=== PATIENT | male | born 1955 | race Caucasian/White ===

== ENCOUNTER → 2018-01-03 09:10 | Outpatient (CLI) | payer OTHER, SELFPAY ==
[2018-01-03 09:43] LABS: AST(SGOT) 27 U/L (15-37); Alanine Aminotransfer ALT/SGPT 45 U/L (16-61); Albumin, Serum 3.9 g/dL (3.2-5.0); Alkaline Phosphatase 53 U/L (45-117); Bilirubin, Direct 0.17 mg/dL (0.00-0.30); Cholesterol 100 mg/dL (200); Globulin 3.1 g/dL (2.2-4.2); High Density Lipoprotein 33 mg/dL; Triglycerides 81 mg/dL; Very Low Density Lipoprotein 16 mg/dL (5-40)
== END ==
PROVIDERS: PCP Family Medicine; Visit Provider Internal Medicine Cardiovascular Disease
DX: E78.5 Hyperlipidemia, unspecified (principal); Z79.899 Other long term (current) drug therapy
CPT/HCPCS: 36415; 80061; 80076

== ENCOUNTER → 2018-07-30 06:20 | Outpatient (CLI) | payer OTHER, SELFPAY ==
[2018-07-30 07:25] LABS: AST(SGOT) 23 U/L (15-37); Alanine Aminotransfer ALT/SGPT 38 U/L (16-61); Albumin, Serum 3.9 g/dL (3.2-5.0); Alkaline Phosphatase 51 U/L (45-117); Bilirubin, Direct 0.24 mg/dL (0.00-0.30); Cholesterol 96 mg/dL (200); Globulin 3.4 g/dL (2.2-4.2); High Density Lipoprotein 37 mg/dL; Protein, Total 7.3 g/dL (6.4-8.2); Triglycerides 86 mg/dL; Very Low Density Lipoprotein 17 mg/dL (5-40)
== END ==
PROVIDERS: Family Provider Family Medicine; PCP Family Medicine; Referring Provider Physician Assistant Medical; Visit Provider Physician Assistant Medical
DX: I25.10 Atherosclerotic heart disease of native coronary artery without angina pectoris (principal); E78.5 Hyperlipidemia, unspecified
CPT/HCPCS: 36415; 80061; 80076

== ENCOUNTER → 2019-04-03 06:43 | Outpatient (CLI) | payer OTHER, SELFPAY ==
[2019-03-27 09:47] VITALS: BMI 26.7
[2019-04-03 08:14] LABS: AST(SGOT) 26 U/L (15-37); Alanine Aminotransfer ALT/SGPT 38 U/L (16-61); Albumin, Serum 3.7 g/dL (3.2-5.0); Alkaline Phosphatase 53 U/L (45-117); Bilirubin, Direct 0.13 mg/dL (0.00-0.30); Cholesterol 113 mg/dL (200); Globulin 3.4 g/dL (2.2-4.2); High Density Lipoprotein 41 mg/dL; Protein, Total 7.1 g/dL (6.4-8.2); Triglycerides 78 mg/dL; Very Low Density Lipoprotein 16 mg/dL (5-40)
== END ==
PROVIDERS: Family Provider Family Medicine; PCP Family Medicine; Referring Provider Internal Medicine Cardiovascular Disease; Visit Provider Internal Medicine Cardiovascular Disease
DX: E78.00 Pure hypercholesterolemia, unspecified (principal); E78.5 Hyperlipidemia, unspecified
CPT/HCPCS: 36415; 80061; 80076

== ENCOUNTER → 2019-04-11 12:53 | Outpatient (CLI) | payer OTHER, SELFPAY ==
[2019-03-27 09:47] VITALS: BMI 26.7
--- NOTE | 2019-04-11 12:56 | ECHOD_ITS ---
Reason For Study: CAD/ASHD Procedure This was a 2D Doppler, Color Flow transthoracic echocardiogram. The study was technically difficult. Diminished parasternal windows. Exam performed in department. Left Ventricle Normal LV size. Left ventricular systolic function is normal. The estimated ejection fraction is 60 %. Stage 1 diastolic dysfunction. No regional wall motion abnormalities noted. Right Ventricle Normal RV size. Normal systolic function. Atria Normal left atrium. Normal right atrium. Mitral Valve Mitral valve not well visualized. Tricuspid Valve The tricuspid valve is not well visualized. Aortic Valve Trisinus/trileaflet aortic valve. Pulmonic Valve The pulmonic valve is not well visualized. Great Vessels Normal aortic root. Pericardium/Pleural No pericardial effusion. MMode/2D Measurements & Calculations LVIDd: 4.0 cm IVSd: 1.2 cm Ao root diam: 3.5 cm LVIDs: 2.9 cm LVPWd: 0.99 cm RVDd: 3.5 cm FS: 29.0 % LAV(MOD-bp): 45.6 ml LA A4 area: 15.9 cm2 LA dimension(2D): 3.0 cm LAV(MOD-bp) Indexed: 23.6 ml/m2 LAV(MOD-sp2): 49.1 ml LAV(MOD-sp4): 41.5 ml RA A4 area: 18.3 cm2 Time Measurements MV dec time: 0.30 sec Doppler Measurements & Calculations MV E max brandt: 62.0 cm/sec Lat Peak E' Brandt: 10.1 cm/sec Med Peak E' Brandt: 7.7 cm/sec MV A max brandt: 73.2 cm/sec E/E' lat: 6.1 E/E' med: 8.0 MV E/A: 0.85 Ao V2 max: 132.0 cm/sec LV V1 max: 94.5 cm/sec PA V2 max: 78.8 cm/sec Ao max P.0 mmHg LV V1 max P.6 mmHg TR max brandt: 240.1 cm/sec TR max P.1 mmHg Interpretation Summary Normal LV size. Left ventricular systolic function is normal. The estimated ejection fraction is 60 %. Stage 1 diastolic dysfunction. The study was technically difficult. Compared to prior study, there is no significant change. Ordering Physician: Shad Alvarez Referring Physician: Vickey Mendiola Performed By: Teresa Gifford RDCS, RVT
== END ==
PROVIDERS: Family Provider Family Medicine; PCP Family Medicine; Referring Provider Internal Medicine Cardiovascular Disease; Visit Provider Internal Medicine Cardiovascular Disease
DX: Z95.5 Presence of coronary angioplasty implant and graft (principal)
CPT/HCPCS: 93306

== ENCOUNTER 2019-07-07 18:22 | Emergency (ER) | payer OTHER, SELFPAY ==
[2019-03-27 09:47] VITALS: BMI 26.7
[2019-07-07 18:22] VITALS: BP 149/93; PULSE 78; RESP 17; TEMP 36.2; O2SAT 95; BMI 30.2
--- NOTE | 2019-07-07 18:34 | EKG12_ITS ---
Test Reason : DIZZY Blood Pressure : / mmHG Vent. Rate : 074 BPM Atrial Rate : 074 BPM P-R Int : 130 ms QRS Dur : 080 ms QT Int : 388 ms P-R-T Axes : 066 006 071 degrees QTc Int : 430 ms Sinus rhythm with Premature supraventricular complexes Possible Inferior infarct , age undetermined Abnormal ECG Confirmed by SOLITARIO CRAIG, YUSEF ([id number]), television news video editor TRINITY ROLLINS ([id number]) on 07/09/2019 12:27:12 PM Referred By: CL Confirmed By:YUSEF JEREZ MD
--- NOTE | 2019-07-07 18:40 | RAD_ITS ---
STUDY: X-RAY CHEST REASON FOR EXAM: Male, 63 years old. Cough TECHNIQUE: Frontal view of the chest COMPARISON: X-Ray Chest October 09, 2017 FINDINGS: There is a mild right lower lung zone infiltrate. The left lung is clear. There are no pleural effusions. There is no pneumothorax. The heart is normal in size. The visualized osseous structures are within normal limits. RAD/Chest 1 View (Portable) IMPRESSION: Mild right lower lung zone infiltrate. Electronically Signed: Christofer Blkae, at 19:20 EDT Tel , Service support ,
--- NOTE | 2019-07-07 18:44 | ED.VIS.GEN ---
History of Present Illness Narrative: 63-year-old male with past medical history of coronary artery disease and M?ni?re's disease presents with concern for fatigue. Patient states that today he began feeling off balance. States this is typical of his M?ni?re's disease. Approximately 5 hours ago he also felt like he was having a panic attack. Describes this is unable to focus as well as feeling very uneasy. Denies any chest pain, shortness of breath, vomiting, abdominal pain, urinary symptoms. Does admit to some mild nausea. Patient is a current smoker. <Sridhar Staley - Last Filed: 07/07/19 20:34> <Harsha Key - Last Filed: 07/07/19 22:18> Chief Complaint: Dizziness Past Medical History Prior records reviewed: Yes Past Medical History: - - CAD and Menierres disease Smoking Status: Current every day smoker <Sridhar Staley - Last Filed: 07/07/19 20:34> <Harsha Key - Last Filed: 07/07/19 22:18> - Allergies and Home Meds Allergies/Adverse Reactions: Allergies Penicillins [PCN] Allergy (Verified 07/07/19 18:22) Unknown Primary Care Physician: Vickey Mendiola [Primary Care Provider] - Review of Systems General: Denies: Chills, Fever, Sweats Eyes: Denies: Visual changes - bilaterally, Diplopia ENT: Denies: Rhinorrhea, Sore throat Cardiovascular: Denies: Chest pain, Palpitations Respiratory: Denies: Dyspnea, Cough, Dyspnea on exertion Gastrointestinal: Denies: Abdominal pain, Nausea, Vomiting, Diarrhea, Melena, Hematochezia Genitourinary: Denies: Dysuria, Hematuria, Frequency Musculoskeletal: Denies: Back pain, Extremity Pain Skin: Denies: Rash, Wounds Neurological: Reports: - - dizziness. Denies: Headache, Weakness, Numbness <Sridhar Staley - Last Filed: 07/07/19 20:34> Physical Exam Vital Signs/Narrative: Vital Signs Temp Pulse Resp BP Pulse Ox 07/07/19 18:22 97.2 F L 78 17 149/93 H 95 General: Well nourished, Well developed, No Acute Distress Head: Normocephalic, Atraumatic Eyes: Perrl, EOMI ENT: Moist mucous membranes, No rhinorrhea Neck: Supple, Nontender Cardiovascular: Regular rate, Regular rhythm, No murmurs Respiratory: No distress, CTA bilaterally, Chest nontender Abdomen: Soft, Nontender, Nondistended, Normal bowel sounds Back: Nontender, Normal Inspection Extremities: Nontender, No edema Skin: Normal color, No rash Neurological: Alert, Oriented x3, Cranial nerves II-XII grossly intact, Normal Strength, Normal Sensation Psychological: Normal affect, Normal Mood <Sridhar Staley - Last Filed: 07/07/19 20:34> Vital Signs/Narrative: Vital Signs Temp Pulse Resp BP Pulse Ox 07/07/19 20:35 90 18 143/89 H 93 07/07/19 18:22 97.2 F L 78 17 149/93 H 95 <Harsha Key - Last Filed: 07/07/19 22:18> Diagnostic/Tx/Re-eval - Rhythm Strip Rhythm Strip: Sinus Rhythm Rate: 74 - EKG Initial EKG Interpretation: Sinus Rhythm, - - Normal sinus rhythm at 74 bpm. NC interval 130 ms. QTc of 430 ms. No evidence of ST elevation or depression. - Medical Decision Making Patient appears well nontoxic. Vital signs within normal limits. No focal neurologic deficit. EKG and troponin show no evidence of acute cardiac ischemia. Lab work within normal limits. Patient was given Zofran as well as Valium in the emergency department which resolved his symptoms. Was advised he needs a follow-up with his primary care provider if these episodes become more frequent. Asked to return for new or worsening symptoms. Patient is agreeable to this plan and discharged home in stable condition. <Sridhar Staley - Last Filed: 07/07/19 20:34> - Medical Decision Making Patient was seen with me. I did a [id number] examination with the patient. Patient presents with dizziness that began today. Patient states he has a history of M?ni?re's disease. Patient states his dizziness feels like he is off balance. Patient states this feels similar to prior episodes of his M?ni?re's disease. Patient also has a history of coronary artery disease. Patient denies any chest pain at the present time. Vital signs are stable. Patient is afebrile. Patient is in no acute distress. Heart was regular rate and rhythm. Lungs are clear and equal bilaterally. Abdomen is soft and nontender. Cranial nerves II through XII are intact. There are no focal motor or sensory deficits noted. Pupils are equal, round, and reactive to light bilaterally. Extraocular muscles are intact. There is no nystagmus noted. EKG showed normal sinus rhythm. There are no acute ST or T wave changes. CBC, basic metabolic profile, and troponin were essentially within normal limits. Patient was given a dose of Valium here in the emergency department. Patient felt better after this. Patient was instructed to follow-up with his primary care physician in 5 to 7 days. Patient understood and was agreeable with the plan. All questions were answered. <Harsha Key - Last Filed: 07/07/19 22:18> ED Disposition <Sridhar Staley - Last Filed: 07/07/19 20:34> <Harsha Key - Last Filed: 07/07/19 22:18> - Plan for ED Patient: Disposition: Home or Assisted Living Diagnosis: Anxiety, Dizziness Instructions: DIZZINESS, Unk Cause Referrals: Vickey Mendiola [Primary Care Provider] -
[2019-07-07] MEDS: diazePAM 5 MG Tablet 2.5 MG PO (18:55)
[2019-07-07] MEDS: Ondansetron 4 MG/2 ML Vial IV (18:55)
[2019-07-07 19:17] LABS: Absolute Lymphocyte Count 2.45 X10^3/uL (0.83-4.51); Absolute Neutrophil Count 7.2 X10^3/uL (2.0-7.7); Basophil# 0.04 X10^3/uL; Basophil% 0.4 % (0-1); Eosinophil# 0.17 X10^3/uL; Eosinophils% 1.6 % (0-5); Hematocrit 48.9 % (40-54); Hemoglobin 16.1 g/dL (13.0-16.5); Lymphocyte # 2.45 X10^3/ul (4.0); Lymphocyte % 23.3 % (19-41); Mean Corp Hgb Conc 32.9 g/dL (32-36); Mean Corpuscular Hgb 33.6 pg (27.0-32.0); Mean Corpuscular Volume 102.1 fL (80-94); Mean Platelet Vol. 9.3 fl (6.2-12.0); Monocyte# 0.67 X10^3/uL; Monocyte% 6.4 % (0-10); NRBC Flagged by Analyzer 0 % (0-5); Neutrophil # 7.18 X10^3/uL (2.7-7.7); Neutrophil % 68.1 % (47-70); Platelet Count 180 K/mm3 (150-450); RBC Distribution Width CV 12.9 % (11.6-14.6); RBC Distribution Width SD 49.3 fl (35.1-43.9); Red Blood Count 4.79 M/mm3 (4.6-6.2); White Blood Count 10.5 K/mm3 (4.4-11.0)
[2019-07-07 19:33] LABS: Anion Gap 2 (5-15); BUN 24 mg/dL (7-18); BUN/Creat Ratio 26.6 RATIO (10-20); Calcium,Total 9.2 mg/dL (8.5-10.1); Chloride 106 mmol/L (98-107); EST Glomerular Filtration Rate 90 mL/min (>60); Est Glom Filt Rate - Afr Amer 109 mL/min (>60); Estimated Creatinine Clearance 77.52 ml/min; Glucose 124 mg/dL (74-106); Potassium 4.2 mmol/L (3.5-5.1); Sodium Level 140 mmol/L (136-145)
[2019-07-07 20:35] VITALS: BP 143/89; PULSE 90; RESP 18; O2SAT 93
--- NOTE | 2019-07-07 20:37 | ED.RN ---
PT GIVEN WRITTEN AND VERBAL DISCHARGE INSTRUCTIONS. EDUCATED TO FOLLOW UP WITH PCP, AND RETURN TO ED WITH ANY NEW OR WORSENED SX. PT VERBALIZES UNDERSTANDING AND DENIES ANY FURTHER QUESTIONS. IV D/C AND COVERED WITH 2X2 GAUZE PRESSURE APPLIED TO SITE. NO BLEEDING NOTED ON D/C. PT AMBULATORY OUT OF DEPT WITH FAMILY.
== END 2019-07-07 20:38 | disposition home or self-care (01) ==
PROVIDERS: Emergency Provider Emergency Medicine; Family Provider Family Medicine; PCP Family Medicine
DX: F41.9 Anxiety disorder, unspecified (principal); R42 Dizziness and giddiness; I25.10 Atherosclerotic heart disease of native coronary artery without angina pectoris; F17.200 Nicotine dependence, unspecified, uncomplicated
CPT/HCPCS: 71045; 80048; 84484; 85025; 93005; 96361; 96374; 99283; J7030; J2405

== ENCOUNTER 2019-12-29 12:42 | Emergency (ER) | payer OTHER, SELFPAY ==
[2019-09-29 07:55] VITALS: BMI 29.9
[2019-12-29 12:43] VITALS: BP 92/79; PULSE 73; RESP 16; TEMP 36.7; O2SAT 95; BMI 28.1
--- NOTE | 2019-12-29 13:26 | EKG12_ITS ---
Test Reason : FALL Blood Pressure : / mmHG Vent. Rate : 061 BPM Atrial Rate : 061 BPM P-R Int : 132 ms QRS Dur : 072 ms QT Int : 392 ms P-R-T Axes : 074 041 047 degrees QTc Int : 394 ms Normal sinus rhythm Normal ECG Confirmed by JOSS CRAIG, YAMILA ([id number]), department editor FIORELLA OCHOA ([id number]) on 12/30/2019 8:25:38 AM Referred By: FAIZA Confirmed By:YAMILA COREAS MD
--- NOTE | 2019-12-29 13:39 | ED.VIS.GEN ---
History of Present Illness Chief Complaint: Fall Informant: Patient Onset: Today Narrative: Presents for evaluation of right thigh injury 3 AM along with transient lightheaded and sweats. Fall while working in the barn at 3 AM onto right thigh, no head injuries. Able to ambulate. Throughout the day pain has worsened. States earlier while trying to get a car have increasing pain having sweats and lightheaded symptoms which is currently resolved. He is brought in by EMS. He has had similar episodes with pain causing symptoms previously. No chest pains or shortness of breath. No nausea vomiting. No urinary symptoms. Denies fevers. Prior similar symptoms: No Past Medical History - Allergies and Home Meds Allergies/Adverse Reactions: Allergies Penicillins [PCN] Allergy (Verified 12/29/19 12:43) Unknown Primary Care Physician: Vickey Mendiola [Primary Care Provider] - Past Medical History: - - Hypertension, hyperlipidemia, coronary disease, NM Smoking Status: Current every day smoker Review of Systems General: Denies: Chills, Fever, Sweats Eyes: Denies: Visual changes - bilaterally, Diplopia ENT: Denies: Rhinorrhea, Sore throat Cardiovascular: Denies: Chest pain, Palpitations Respiratory: Denies: Dyspnea, Cough, Dyspnea on exertion Gastrointestinal: Denies: Abdominal pain, Nausea, Vomiting, Diarrhea, Melena, Hematochezia Genitourinary: Denies: Dysuria, Hematuria, Frequency Musculoskeletal: Reports: Myalgias. Denies: Back pain, Extremity Pain Skin: Denies: Rash, Wounds Neurological: Denies: Headache, Weakness, Numbness Physical Exam Vital Signs/Narrative: Vital Signs Temp Pulse Resp BP Pulse Ox 12/29/19 12:43 98.1 F 73 16 92/79 95 Inital Vital Signs reviewed: Yes General: Well nourished, Well developed, No Acute Distress Head: Normocephalic, Atraumatic Eyes: Perrl, EOMI ENT: Moist mucous membranes, No rhinorrhea Neck: Supple, Nontender Cardiovascular: Regular rate, Regular rhythm, No murmurs Respiratory: No distress, CTA bilaterally, Chest nontender Abdomen: Soft, Nontender, Nondistended, Normal bowel sounds Back: Nontender, Normal Inspection Extremities: No edema, - - Right lower extremity negative logroll. There is some tenderness lateral mid thigh mild ecchymosis, no deformities. No knee tenderness. Skin intact. Neuro vas intact distally. Skin: Normal color, No rash Neurological: Alert, Oriented x3, Cranial nerves II-XII grossly intact, Normal Strength, Normal Sensation Psychological: Normal affect, Normal Mood Diagnostic/Tx/Re-eval - EKG Initial EKG Interpretation: Sinus Rhythm - Sinus rate of 61, no ST or T wave changes QTC 394. - Medical Decision Making Patient with no focal neurologic deficits. Patient with thigh contusion, he has been ambulatory, discussed not likely femur fracture due to his mechanism. He agrees. Agrees with not obtaining x-ray at this time. Isidro wrap provided he has Tylenol home for which she will use declines any medicines in the ED. With his history appears to be pain induced sympathetic response with nausea and sweating along with lightheaded symptoms. He has had this in the past. Symptoms resolved. He ambulated in the ED with no return of symptoms. Signs of discussed to return otherwise follow-up as an outpatient. All questions were answered. ED Disposition - Plan for ED Patient: Disposition: Home or Assisted Living Diagnosis: Contusion of right thigh, initial encounter, Vasovagal near syncope Instructions: CONTUSION, Lower Extremity, NEAR SYNCOPE, Vasovagal Referrals: Vickey Mendiola [Primary Care Provider] - 3-5 Days
== END 2019-12-29 14:17 | disposition home or self-care (01) ==
PROVIDERS: Emergency Provider Emergency Medicine; PCP Family Medicine
DX: S70.11XA Contusion of right thigh, initial encounter (principal); X58.XXXA Exposure to other specified factors, initial encounter; Y93.89 Activity, other specified; Y92.71 Barn as the place of occurrence of the external cause; R55 Syncope and collapse; I25.10 Atherosclerotic heart disease of native coronary artery without angina pectoris; I25.2 Old myocardial infarction; I10 Essential (primary) hypertension; E78.5 Hyperlipidemia, unspecified; F17.200 Nicotine dependence, unspecified, uncomplicated; Z79.82 Long term (current) use of aspirin
CPT/HCPCS: 93005; 99284; A4216

== ENCOUNTER → 2020-06-03 06:11 | Outpatient (CLI) | payer OTHER, SELFPAY ==
[2020-05-21 10:30] VITALS: BMI 29.7
[2020-06-03 07:53] LABS: AST(SGOT) 24 U/L (15-37); Alanine Aminotransfer ALT/SGPT 39 U/L (16-61); Albumin, Serum 3.9 g/dL (3.2-5.0); Alkaline Phosphatase 52 U/L (45-117); Bilirubin, Direct 0.15 mg/dL (0.00-0.30); Cholesterol 118 mg/dL (200); Globulin 3.3 g/dL (2.2-4.2); High Density Lipoprotein 34 mg/dL; Protein, Total 7.2 g/dL (6.4-8.2); Triglycerides 74 mg/dL; Very Low Density Lipoprotein 15 mg/dL (5-40)
== END ==
PROVIDERS: PCP Family Medicine; Referring Provider Internal Medicine Cardiovascular Disease; Visit Provider Internal Medicine Cardiovascular Disease
DX: E78.5 Hyperlipidemia, unspecified (principal)
CPT/HCPCS: 36415; 80061; 80076

== ENCOUNTER 2020-10-15 09:30 | Emergency (ER) | payer OTHER, SELFPAY ==
[2020-05-21 10:30] VITALS: BMI 29.7
[2020-10-15 09:36] VITALS: BP 109/94; PULSE 58; RESP 16; TEMP 36.4; O2SAT 91; BMI 29.6
--- NOTE | 2020-10-15 09:44 | RAD_ITS ---
STUDY: X-RAY - LEFT HAND REASON FOR EXAM: Male, 64 years old. Laceration to left hand from band saw. 1st metacarpal fleshy area left hand. TECHNIQUE: 3 view(s) of the hand. COMPARISON: None. FINDINGS: Normal radiocarpal articulation. Normal distal radioulnar joint. Normal visualized carpal bones. Normal carpal articulations Normal carpometacarpal articulation of the thumb. Normal second through fifth carpometacarpal joints. Normal metacarpi. Normal metacarpophalangeal joint of the thumb. Normal interphalangeal joint of the thumb. Normal proximal and distal phalanges of the thumb. Normal metacarpophalangeal joints of the second through fifth fingers. Normal proximal and distal interphalangeal joints of the second through fifth fingers. Normal phalanges of the second through fifth fingers. Soft tissue laceration overlying the first metacarpal. No radiopaque foreign body is seen. RAD/Hand Min 3 Views IMPRESSION: Soft tissue laceration. No radiopaque foreign bodies. Electronically Signed: Sina Truong, at 10:15 EST , Service support ,
--- NOTE | 2020-10-15 09:45 | ED.DCSUM_ITS ---
- ER Visit Summary Date of Service: 10/15/20 Chief Complaint: [Laceration to left hand] History of Present Illness: The patient is a 64 M [presents to the emergency department with complaint of a laceration to the left hand that he incurred this morning. Patient was using a band saw to cut some metal when he states that his glove caught on the pants on pulled his hand into the blade. Patient is left-hand dominant. Patient unsure of his last tetanus shot. Patient has history of coronary artery disease, hypertension, high cholesterol. Patient currently on aspirin and Plavix.] Physical Examination: [HEENT-PERRLA, EOMI. Cranial nerves II through XII grossly intact. TMs clear. Mucous membranes moist. No adenopathy. Cardiovascular-regular rate and rhythm without murmur or ectopy Lungs-clear to auscultation, chest wall stable without crepitus or subcu emphysema Abdomen-normoactive bowel sounds, soft, nontender, no rebound or rigidity, no peritoneal signs. Extremities-intact ?4, normal range of motion, normal pulses. Left hand-patient has a 4 cm laceration to the dorsum of the left hand over the distal portion of the first metacarpal of the thumb. Patient has normal extension of the thumb against resistance. He is got normal flexion. Patient has normal sensation distally. Neurovascular intact.] Test Results: [X-rays of the left hand obtained read by myself as no acute fractures or foreign bodies noted within the wound. Official radiology report pending.] Emergency Department Course and Treatment: [Laceration repair-wound sterilely draped and prepped. Wound anesthetized locally with 8 cc of 1% lidocaine. Wound cleansed with Shur-Clens and irrigated with copious saline. Wound was directly inspected and I do not appreciate any evidence of extensor tendon involvement through flexion extension of the thumb. Using 5-0 nylon a total of 7 single interrupted sutures placed with good wound edge approximation. Patient tolerated procedure well. Dressing applied.] Patient received Adacel tetanus booster. Treatment Plan: [Patient to have sutures removed in 10 days. Patient to return if increasing pain, redness, swelling, purulent drainage, or condition should worsen anyway.] Disposition: [Discharged home in stable condition] Impression: [Left hand laceration 4.5 cm-simple repair] This note was generated with [employer] software. It may contain incorrect words, spelling, and punctuation that were not noted in review of the chart prior to signing ED Disposition - Plan for ED Patient: Referrals: Vickey Mendiola MD [Primary Care Provider] -
[2020-10-15] MEDS: Lidocaine 1% (20 ml mdv) 20 ML Vial 10 ML INFILT (09:59)
--- NOTE | 2020-10-15 10:11 | ED.DEP ---
ED Disposition - Plan for ED Patient: Instructions: ED Laceration, Hand: All Closures Referrals: Vickey Mendiola MD [Primary Care Provider] - 10 Day for suture removal
[2020-10-15] MEDS: Diphth,Pertuss(Acell),Tet Vac 0.5 ML Vial IM (10:14)
[2020-10-15 10:29] VITALS: PULSE 66; RESP 17; O2SAT 93
== END 2020-10-15 10:32 | disposition home or self-care (01) ==
LOC: ED 10:23
PROVIDERS: Emergency Provider Emergency Medicine; PCP Family Medicine
DX: S61.412A Laceration without foreign body of left hand, initial encounter (principal); W31.2XXA Contact with powered woodworking and forming machines, initial encounter; Y93.89 Activity, other specified; Y92.9 Unspecified place or not applicable; Y99.9 Unspecified external cause status; I25.10 Atherosclerotic heart disease of native coronary artery without angina pectoris; I10 Essential (primary) hypertension; E78.00 Pure hypercholesterolemia, unspecified; Z79.02 Long term (current) use of antithrombotics/antiplatelets; Z79.82 Long term (current) use of aspirin; Z79.899 Other long term (current) drug therapy; Z72.0 Tobacco use
CPT/HCPCS: 12002; 73130; 90471; 90715; 99285

== ENCOUNTER → 2022-06-26 | Outpatient (CLI) | payer OTHER, SELFPAY ==
--- NOTE | 2022-06-26 18:44 | STRESSREP ---
Stress Test Report Exercise stress myocardial perfusion test. 66-year-old male with a history of coronary artery disease. Stress protocol: Resting EKG demonstrates normal sinus rhythm with a rate of 63 bpm normal intervals are noted resting blood pressure is 120/90 mmHg. The patient exercised according to regular Kota protocol for total duration of 6 minutes completing stage II of the Kota protocol the maximum heart rate attained was 123 bpm which was 80% of max impacted heart rate the maximum workload was 7 metabolic equivalents. Patient maintained sinus rhythm throughout the recording. At rest there were no ST or T wave changes noted to suggest ischemia and at peak exercise upsloping ST changes were noted. Did not meet the criteria for ischemia. No clinical angina was noted. The test was terminated due to dyspnea. The peak blood pressure was 166/74 mmHg. Myocardial perfusion protocol. 11.3 mCi of technetium 99m sestamibi was injected at rest. The patient exercised according to regular Kota protocol and at peak exercise 32.8 mCi of technetium 99m sestamibi was injected stress images were obtained stress and rest images were reconstructed and compared in the short axis vertical long and horizontal long axis. Gated images were also obtained to Perfusion SPECT analysis: Review of the stress images demonstrate normal uptake of tracer noted in all areas of the myocardium except for the basal inferolateral wall. There is a medium size defect noted in this area. On the resting images there is minimal javier-infarct ischemia noted in this area the rest of the gonzalez appear to be well perfused. Gated SPECT analysis: The gated ejection fraction is 61%. 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 Minimal javier-infarct ischemia present. Preserved ejection fraction.
== END | disposition home or self-care (01) ==
PROVIDERS: PCP Family Medicine; Referring Provider Nurse Practitioner Gerontology; Visit Provider Nurse Practitioner Gerontology
DX: I25.10 Atherosclerotic heart disease of native coronary artery without angina pectoris (principal); Z95.5 Presence of coronary angioplasty implant and graft
CPT/HCPCS: 78452; 93017; A9500; A4216

== ENCOUNTER 2024-09-01 06:04 | Emergency (ER) | payer OTHER, SELFPAY ==
[2024-09-01 06:04] VITALS: BP 138/98; PULSE 78; RESP 16; TEMP 36.6; O2SAT 100; BMI 28.8
--- NOTE | 2024-09-01 06:17 | EDS_ITS ---
HPI History of Present Illness Chief Complaint: Upper Extremity Injury Detail of Chief Complaint: Atraumatic posterior neck pain Informant: patient Occured/Mechanism Comment: Atraumatic Onset/Context/Timing Onset: Days Context: Sudden Onset Timing: Continuous (Worse) Quality of Pain: Dull and Aching Location: Posterior neck Current Severity: Severe Maximum Severity: Severe Worsened by: Movement Relieved by: Nothing Associated Symptoms Associated Symptoms: Positive for - (Numbness pain in a patchy nondermatomal distribution.); Negative for Parasthesia, Weakness or Loss of Funtion Narrative Narrative: Patient is a 68-year-old [id number] male who presents with atraumatic posterior neck pain. He has had problems with his neck in the past. MRI. Surgeon recommended surgery. Insurance company declined surgery. Stated he would have to go through physical therapy. He states he began to have pain a couple days ago. Is gotten significantly worse. He is taken Tylenol with no benefit. Has not applied heat or ice to the neck. He has no other complaints other than the numbness pain dorsal right forearm. Prior similar symptoms: Yes Recent Illness/Hospitalization: No PFSH PFSH Medical History Meniere's disease History of non-ST elevation myocardial infarction (NSTEMI) (06/2011) Atherosclerosis of coronary artery of [place] heart without angina pectoris Essential (primary) hypertension muscle repair Hyperlipidemia Nicotine abuse Home Medications ?Medication ?Instructions ?Recorded ?Last Taken ?Type nitroglycerin 0.4 mg sublingual 0.4 mg sublingual Q5M PRN chest 12/05/17 Unknown History tablet (Nitrostat) pain lisinopril 10 mg tablet 10 mg PO DAILY #90 tabs 05/30/22 Unknown Rx meclizine 25 mg tablet 25 mg PO DAILY PRN dizziness 06/26/23 Unknown History atorvastatin 80 mg tablet See Rx Instructions .Route 05/13/24 Unknown Rx .COMPLEX #90 tabs clopidogrel 75 mg tablet See Rx Instructions .Route 05/13/24 Unknown Rx .COMPLEX #90 tabs oxycodone-acetaminophen 5 mg-325 1 tab PO Q8H PRN pain 3 days #10 09/01/24 Unknown Rx mg tablet (Percocet) tabs Allergy/AdvReac Type Severity Reaction Status Date / Time Penicillins (PCN) Allergy Unknown Verified 09/01/24 06:05 Family History Mother CAD (coronary artery disease) Hx of CABG Father COPD (chronic obstructive pulmonary disease) Sister Colon cancer Surgical History History of coronary artery stent placement (07/03/11) History of lumbar surgery Social History Smoking Status: Current every day smoker tobacco type: cigarettes alcohol intake: never substance use type: does not use caffeine: Yes Type: coffee Number of servings: 2 what type of physical activity do you participate in: none seatbelt use: always do you feel safe at home: Yes ROS ROS ED Constitutional Constitutional ED: Denies chills, fever(s), subjective or sweats Eyes Eyes: Denies blurry vision, change in vision or diplopia ENT ENT ED: Denies ear pain, rhinorrhea or sore throat Cardiovascular Cardiovascular: Denies chest pain or palpitations Respiratory/Chest Respiratory/Chest: Denies cough, dyspnea or dyspnea on exertion Gastrointestinal Gastrointestinal: Denies nausea or vomiting Musculoskeletal Musculoskeletal: Reports neck pain; Denies back pain or myalgias Integumentary Denies rash Neurologic Neurologic: Denies paresthesias or weakness Psychiatric Psychiatric: Denies anxiety or depression Hematologic/Lymphatic Hematologic/Lymphatic: Denies easy bleeding or easy bruising Allergic/Immunologic Allergic/Immunologic ED: Denies mouth swelling or tongue swelling EXAM Physical Exam Const Vital Signs: 09/01/24 06:04 Temperature 97.8 F Temperature Source Oral Pulse Rate 78 Respiratory Rate 16 Blood Pressure 138/98 H Blood Pressure Mean 111 Pulse Ox 100 Positive well nourished and well developed General Appearance ED: well developed HEENT Reports moist mucous membranes normocephalic and atraumatic Eyes PERRL and EOMs intact bilaterally Neck No full ROM and No supple Neck Narrative: Pain to palpation. Limited range of motion Resp normal respiratory effort Cardio regular rate and regular rhythm Extremity normal to inspection and full ROM Extremity Narrative: Axillary, median, radial and ulnar function intact. Bicep, brachialis and tricep reflexes are 2+ and symmetric. Radial pulses palpable and symmetric. No dermatologic lesions noted. Neuro oriented x3, CN's II-XII intact bilaterally and moves all extremities Psych mental status grossly normal Skin General Skin Exam: Negative for petechiae Lesions: no lesions Rashes: no rashes Trauma: no lacerations or abrasions MDM MDM MDM Narrative Medical decision making narrative: Review of prior records indicates there is no x-rays had been performed at [facility]. Since there is never been x-rays of his neck x-rays of his neck was obtained. He is presently still hunched over the bed. Does not want to sit on the cot. He has tenderness superior the right and left scapular spine. He has minimal tenderness paracervical area. Patient was medicated with opiate analgesia and IV Toradol. Review of prior record indicates he has no renal dysfunction or contraindication to 1 dose of NSAID. Patient was reassessed at 0740. He is now standing up. He is able to move his head and neck freely. He is able to lie down as well. He was discharged with pain medicine. Radiography Chest X-Ray - ED: Read by ED Physician (5 view x-ray reveals no significant abnormality per my review. There is no fracture, subluxation or dislocation) Discharge Plan Triage Chief Complaint: Upper Extremity Injury ED Provider: Kory Torre Dx/Rx/DC Orders Clinical Impression: Chronic neck and back pain, Hyperlipidemia, Elevated blood pressure reading with diagnosis of hypertension Instructions: ED Back and Neck Pain, General Prescriptions: New oxycodone-acetaminophen [Percocet] 5-325 mg tablet 1 tab PO Q8H PRN (Reason: pain) 3 Days Qty: 10 0RF No Action nitroglycerin [Nitrostat] 0.4 mg tablet, sublingual 0.4 mg SUBLINGUAL Q5M PRN (Reason: chest pain) Patient Comments: X 3 meclizine 25 mg tablet 25 mg PO DAILY PRN (Reason: dizziness) Patient Comments: TAKE 1 TABLET BY MOUTH THREE TIMES A DAY NEEDED lisinopril 10 mg tablet 10 mg PO DAILY Qty: 90 3RF atorvastatin 80 mg tablet See Rx Instructions .ROUTE .COMPLEX Qty: 90 3RF Dose Instruction: TAKE 1 TABLET BY MOUTH EVERY DAY Rx Instructions: TAKE 1 TABLET BY MOUTH EVERY DAY clopidogrel 75 mg tablet See Rx Instructions .ROUTE .COMPLEX Qty: 90 3RF Dose Instruction: TAKE 1 TABLET BY MOUTH EVERY DAY Rx Instructions: TAKE 1 TABLET BY MOUTH EVERY DAY Primary Care Provider: Vickey Mendiola Referrals: Vickey Mendiola MD [Primary Care Provider] - 3-5 Days Print Language: Gambian Disposition Disposition: Home, Self Care
[2024-09-01] MEDS: Ketorolac 15 MG/ML Vial IV (06:19)
[2024-09-01] MEDS: Morphine 4 MG/ML Syringe IV ×2 (06:20→07:17)
[2024-09-01] MEDS: Ondansetron 4 MG/2 ML Vial IV (06:20)
--- NOTE | 2024-09-01 06:30 | RAD_ITS ---
EXAM: XR CERVICAL SPINE, 4 OR 5 VIEWS CLINICAL INDICATION: Neck pain TECHNIQUE: Frontal, lateral and bilateral oblique views of the cervical spine. COMPARISON: No relevant prior studies available. FINDINGS: VERTEBRAE: C7 and T1 not well visualized on the lateral view. Facet joints. Normal. Preserved vertebral body height. No acute fracture. No spondylolisthesis. Preservation of the normal cervical lordosis.SPACES: Mild degenerative disc disease C5-C6. SOFT TISSUES: Unremarkable. LUNG APICES: Clear. RAD/Cerv Spine 4 or 5 Views IMPRESSION: Mild degenerative disc disease C5-C6. Electronically Signed: Conrad Gomez MD at 7:07 EST ,
[2024-09-01 08:12] VITALS: BP 140/72; PULSE 79; RESP 18; TEMP 36.6; O2SAT 99
== END 2024-09-01 08:14 | disposition home or self-care (01) ==
PROVIDERS: Emergency Provider Emergency Medicine; PCP Family Medicine; Visit Provider Emergency Medicine
DX: M54.2 Cervicalgia (principal); G89.29 Other chronic pain; E78.5 Hyperlipidemia, unspecified; I25.10 Atherosclerotic heart disease of native coronary artery without angina pectoris; I10 Essential (primary) hypertension; I25.2 Old myocardial infarction; Z79.899 Other long term (current) drug therapy
CPT/HCPCS: 72050; 96374; 96375; 96376; 99283; A4216; J2405